=== PATIENT | male | born 1975 | race Caucasian/White ===

== ENCOUNTER 2019-05-22 13:07 | Emergency (ER) | payer SELFPAY ==
[2019-05-22] MEDS ORDERED: Lorazepam 2 MG/ML VIAL ONE (14:03)
[2019-05-22 14:23] LABS: #Lymphocytes 0.6 thou/uL (1.20-3.40); #Monocytes 0.6 thou/uL (0.11-0.59); %Basophils 0.4 % (0.0-1.0); %Eosinophils 0.2 % (0.0-10.0); %Lymphocytes 9.5 % (21.0-51.0); %Neutrophils 80.9 % (42.0-75.0); Mean Corpuscular HGB CONC 34.6 g/dL (32.0-36.0); Mean Corpuscular Hemoglobin 32.7 pg (27.0-31.0); Mean Corpuscular Volume 94.3 fL (78.0-98.0); Mean Platelet Volume 9.2 fL (7.4-10.4); Platelet Count 101 thou/uL (130-400); RBC Distribution Width 11.7 % (11.5-14.5); Red Blood Cell (RBC) Count 4.61 mill/uL (4.70-6.10); White Blood Cell (WBC) Count 6.2 thou/uL (4.8-10.8)
[2019-05-22 14:39] LABS: ALT (SGPT) 46 U/L (8-55); AST (SGOT) 67 U/L (5-34); Albumin 4.8 g/dL (3.5-5.0); Alkaline Phosphatase 97 U/L (40-110); Anion Gap 21 mmol/L (10-20); BUN (Urea Nitrogen) 7 mg/dL (8.9-20.6); Bilirubin, Total 1.8 mg/dL (0.2-1.2); CK (CPK) 216 U/L (30-200); Calc. Creatinine Clearance 0 mL/min (70-130); Calcium 9.6 mg/dL (7.8-10.44); Carbon Dioxide 21 mmol/L (22-29); Chloride 99 mmol/L (98-107); Estimated GFR-MDRD Greater than 90; Globulin 2.9 g/dL (2.4-3.5); Glucose 75 mg/dL (70-105); Platelet Morphology Comment Appears Decreased; Potassium 3.5 mmol/L (3.5-5.1); Protein, Total 7.7 g/dL (6.0-8.3); RBC Morphology Normal; Sodium 137 mmol/L (136-145)
== END 2019-05-22 14:58 | disposition home or self-care (01) ==
LOC: ERS 13:07
DX: T67.5XXA Heat exhaustion, unspecified, initial encounter (principal); R06.4 Hyperventilation; F17.220 Nicotine dependence, chewing tobacco, uncomplicated; X30.XXXA Exposure to excessive natural heat, initial encounter
CPT/HCPCS: 36415; 80053; 82550; 85025; 93005; 96361; 96374; J2060

== ENCOUNTER 2021-04-29 23:48 | Emergency (ER) | payer OTHER, SELFPAY ==
[2021-04-30] MEDS ORDERED: Lidocaine 1% (PF) 30 ML VIAL ONE (00:27)
[2021-04-30] MEDS ORDERED: Boostrix 0.5 ML (Tdap) VIAL ONE (00:32)
== END 2021-04-30 00:25 | disposition home or self-care (01) ==
LOC: ERS 23:48
DX: S02.2XXA Fracture of nasal bones, initial encounter for closed fracture (principal); S01.21XA Laceration without foreign body of nose, initial encounter; W01.10XA Fall on same level from slipping, tripping and stumbling with subsequent striking against unspecified object, initial encounter; Z79.899 Other long term (current) drug therapy; I10 Essential (primary) hypertension; F17.220 Nicotine dependence, chewing tobacco, uncomplicated
CPT/HCPCS: 12013; 70450; 70486; 72125; 90471; 90715; J2001

== ENCOUNTER 2022-01-22 17:17 | Emergency (ER) | payer SELFPAY ==
[2022-01-22] MEDS ORDERED: Ketorolac Tromethamine 30 MG/ML VIAL ONE (17:40)
== END 2022-01-22 18:17 | disposition left against medical advice (07) ==
LOC: ERS 17:17
DX: S50.812A Abrasion of left forearm, initial encounter (principal); S50.811A Abrasion of right forearm, initial encounter; W18.30XA Fall on same level, unspecified, initial encounter; I10 Essential (primary) hypertension; F17.290 Nicotine dependence, other tobacco product, uncomplicated
CPT/HCPCS: 71045; 96372; J1885